=== PATIENT | female | born 1950 | race Caucasian/White ===

== ENCOUNTER 2019-06-30 12:08 | Emergency (ER) | payer MEDICARE, BC ==
[2019-06-30] MEDS ORDERED: Ondansetron 4 MG/2 ML SDV IVPUSH ONE (12:26)
[2019-06-30] MEDS ORDERED: methylPREDNISolone Sodium Succinate 40 MG/1 ML SDV IVPUSH ONE (12:26)
[2019-06-30] MEDS ORDERED: Albuterol/Ipratropium 3.0-0.5 MG/3 ML Neb Soln NEB ONE (12:27)
[2019-06-30] MEDS ORDERED: Albuterol 0.083% 2.5 MG/3 ML Neb Soln NEB PRN (12:28)
--- NOTE | 2019-06-30 12:29 | EDM.PDOC ---
ED HPI GENERAL MEDICAL PROBLEM - General Chief Complaint: Respiratory Problem Stated Complaint: ASTHMA ATTACK Time Seen by Provider: 06/30/19 12:29 Source of Information: Reports: Patient History Limitations: Reports: No Limitations - History of Present Illness INITIAL COMMENTS - FREE TEXT/NARRATIVE: Patient is a 69-year-old female who presents today with concern for a severe asthma exacerbation which started last night. She has an extensive history of reactive lung disease and is on montelukast, Singulair, and Advair inhaler twice daily. She is also on 4 times per day dual nebs and states that they have not been making any difference. She has been taking her medications as prescribed. She has a history of outside allergies, and says that a common trigger for her is when there is a shift in weather and probably pollen in the fall and cause her to exacerbate very rapidly. She is coughing so bad that she is having some posttussive emesis. She has had previous allergy testing and only knows the results that she was "sensitive". She denies any fever, chills or sweats. She reports that she has been having some diarrhea, but thinks it's from a new heart pill. She does not smoke, and she does not have diabetes. She does not note any pain in her chest, she is is finding it very difficult to breathe. Throat Pain Score (Numeric/FACES): 2 - Related Data Allergies Allergy/AdvReac Type Severity Reaction Status Date / Time chocolate flavor Allergy Cannot Verified 09/27/16 20:40 Remember latex Allergy Cannot Verified 09/27/16 20:40 Remember Penicillins Allergy Hives Verified 06/30/19 12:13 Home Meds: Home Meds Citalopram Hydrobromide [Citalopram HBr] 20 mg PO DAILY 04/08/14 [History] Fluticasone/Salmeterol [Advair 500-50] 1 puff INH BID 04/08/14 [History] Montelukast [Singulair] 10 mg PO BEDTIME 04/08/14 [History] Ondansetron [Zofran] 4 mg PO Q8H PRN 04/08/14 [History] Verapamil HCl [Verapamil ER] 240 mg PO DAILY 04/08/14 [History] Albuterol Sulfate [Proair Hfa] 2 puff IH Q4H PRN 90 Days hfa.aer.ad 04/14/14 [ Rx] Carisoprodol [Soma] 350 mg PO QID PRN #360 tablet 04/14/14 [Rx] Pramipexole [Mirapex] 0.5 mg PO 1700 #90 tab 04/14/14 [Rx] Topiramate [Topamax] 100 mg PO TID #0 04/14/14 [Rx] Acetaminophen [Acetaminophen Extra Strength] 500 mg PO ASDIRECTED PRN 09/27/16 [ History] Acetaminophen/HYDROcodone [[place] 325-5 MG] 1 - 2 tab PO TID PRN 09/27/16 [ History] Albuterol/Ipratropium [DuoNeb 3.0-0.5 MG/3 ML] 3 ml NEB QID 09/27/16 [History] Ca/D3/Mag#11/Zinc/Senior Datastage Developer/Vick/Bor [Caltrate 600+D Plus Tablet] 1 tab PO DAILY 09/27 [History] EPINEPHrine [Epinephrine] 1 dose IM ASDIRECTED PRN 09/27/16 [History] diphenhydrAMINE [Benadryl] 25 mg PO QID PRN 09/27/16 [History] Gabapentin [Neurontin] 100 mg PO TID 06/30/19 [History] Propafenone HCl 75 mg PO TID 06/30/19 [History] Rizatriptan Benzoate [Rizatriptan] 10 mg PO ASDIRECTED 06/30/19 [History] predniSONE [Prednisone] 40 mg PO DAILY 5 Days #10 tablet 06/30/19 [Rx] rOPINIRole [Requip] 0.5 mg PO BEDTIME 06/30/19 [History] Past Medical History Cardiovascular History: Reports: Heart Failure, High Cholesterol, Hypertension Other Cardiovascular History: Significant PVC [place] Respiratory History: Reports: Asthma, Sleep Apnea Musculoskeletal History: Reports: Back Pain, Chronic Other Musculoskeletal History: Spine stimulator in place Social & Family History - Family History Cardiac: Reports: Hypertension Endocrine/Metabolic: Reports: Diabetes, type II - Living Situation & Occupation Living situation: Reports: ED ROS GENERAL - Review of Systems Review Of Systems: ROS reveals no pertinent complaints other than HPI. ED EXAM, GENERAL - Physical Exam Exam: See Below Free Text/Narrative:: Gen.: Alert, extremely anxious affect and rapid breathing with a significant cough noted at times. Tympanic membranes are clear bilaterally with normal light reflex and throat is without erythema, mucous members are moist and there is no tonsillar enlargement or exudates. Neck is supple and there is no cervical lymphadenopathy, no nasal congestion is noted at the nares. Heart is slightly tachycardic as would be expected from multiple nebs. Abdomen positive bowel sounds, soft nondistended nontender. Peripheral pulses are +2 in the upper and lower extremities and there is no lower extremity edema. Lungs have diffuse inspiratory and expiratory wheezes throughout with no overlying crackles heard. Her respiratory rate is elevated, but her oxygen sats are 99% on room air. She is able to speak to me in full sentences although will occasionally break into a coughing fit which can last several seconds and has some dry heaves at the end. Course - Vital Signs Text/Narrative:: Patient given DuoNeb on arrival with minimal change in her lung symptoms. Meds not available for immediate review. Labs ordered, chest x-ray Last Recorded V/S: Last Vital Signs Temp 36.4 C 06/30/19 14:27 Pulse 90 06/30/19 14:27 Resp 20 06/30/19 14:27 BP 142/69 H 06/30/19 14:27 Pulse Ox 96 06/30/19 14:27 - Orders/Labs/Meds Labs: Laboratory Tests 06/30/19 06/30/19 06/30/19 Range/Units 12:44 12:44 12:44 WBC 11.4 (4.5-12.0) X10-3/uL RBC 4.72 (3.23-5.20) x10(6)uL Hgb 14.5 (11.5-15.5) g/dL Hct 42.6 (30.0-51.3) % MCV 90.3 (80-96) fL MCH 30.7 (27.7-33.6) pg MCHC 33.9 (32.2-35.4) g/dL RDW 12.9 (11.5-15.5) % Plt Count 248 (125-369) X10(3)uL MPV 9.9 (7.4-10.4) fL Neut % (Auto) 53.4 (46-82) % Lymph % (Auto) 38.7 H (13-37) % [place] % (Auto) 6.1 (4-12) % Eos % (Auto) 1 (1.0-5.0) % Baso % (Auto) 1 (0-2) % Neut # (Auto) 6.1 (1.6-8.3) # Lymph # (Auto) 4.4 (0.6-5.0) # [place] # (Auto) 0.7 (0.0-1.3) # Eos # (Auto) 0.1 (0.0-0.8) # Baso # (Auto) 0.1 (0.0-0.2) # Sodium 143 (135-145) mmol/L Potassium 3.7 (3.5-5.3) mmol/L Chloride 109 (100-110) mmol/L Carbon Dioxide 22 (21-32) mmol/L BUN 15 (7-18) mg/dL Creatinine 0.9 (0.55-1.02) mg/dL Est Cr Clr Drug Dosing 48.11 mL/min Estimated GFR (MDRD) > 60 (>60) BUN/Creatinine Ratio 16.7 (9-20) Glucose 109 (80-116) mg/dL Calcium 8.8 (8.6-10.2) mg/dL C-Reactive Protein 0.9 (0.5-0.9) mg/dL Meds: Medications Discontinued Medications Generic Name Dose Route Start Last Admin Trade Name Freq PRN Reason Stop Dose Admin Albuterol 2.5 mg 06/30/19 12:28 06/30/19 14:22 Proventil Neb Soln NEB 2.5 mg Q2H PRN Administration Wheezing Albuterol/Ipratropium 3 ml 06/30/19 12:27 06/30/19 12:45 Duoneb 3.0-0.5 Mg/3 Ml NEB 06/30/19 12:28 3 ml ONETIME ONE Administration Methylprednisolone Sodium Succinate 60 mg 06/30/19 12:26 06/30/19 12:45 Solu-Medrol IVPUSH 06/30/19 12:27 60 mg ONETIME ONE Administration Ondansetron HCl 4 mg 06/30/19 12:26 06/30/19 12:43 Zofran IVPUSH 06/30/19 12:27 4 mg ONETIME ONE Administration Sodium Chloride 10 ml 06/30/19 12:44 06/30/19 12:30 Saline Flush FLUSH 10 ml ASDIRECTED PRN Administration Keep Vein Open - Re-Assessments/Exams Free Text/Narrative Re-Assessment/Exam: Labs returned within normal limits and patient does not have signs of infection. Dry heaving and vomiting is much better after Zofran but she is still having some coughing fits. She was given 60 of IV prednisone shortly after arrival, as she had already done multiple nebs at home just prior to arrival. She states that usually in this case would happen that she ends up with severely worsening on the second day and is admitted to the hospital no matter what. Her lung exam is actually significantly improved following DuoNeb here, with decreased wheezing, still no crackles and good air movement for effort Medications reviewed and the patient is on optimal asthma ther I accessed the [place] chart and did not see any recent pulmonary function tests, and she appears to have a significant cardiovascular history as well. I wonder about a component of heart failure but she does not appear to have any significant volume overload today and her chest x-ray is otherwise clear. I discussed her findings at length as she is on room air and her labs are normal I do not think she meets criteria for admission. I recommended a course of prednisone which she was quite reluctant about. I recommended follow-up with PCP in the next day or 2 given that she is significantly worried about worsening. She may also benefit from repeat PFTs at this time, I suspect she is significantly anxious about her breathing which is contributing. Departure - Departure Time of Disposition: 00:00 Disposition: Home, Self-Care 01 Condition: Fair Clinical Impression: Exacerbation of asthma - Discharge Information *PRESCRIPTION DRUG MONITORING PROGRAM REVIEWED*: Not Applicable *COPY OF PRESCRIPTION DRUG MONITORING REPORT IN PATIENT LES: Not Applicable Prescriptions: predniSONE [Prednisone] 40 mg PO DAILY 5 Days #10 tablet Instructions: Asthma, Adult Referrals: Huber Chawla MD [Primary Care Provider] - Forms: ED Department Discharge Additional Instructions: consider keeping track of weight - same time every day with same/equivalent clothing off or on start prednisone pack continue nebulizers and home meds could try adding allergy medication such as Zyrtec, Faith or Claritin during fall season followup with Dr. Chawla- July 03 at 1100, [employer]. can use honey or Over the counter cough syrup if symptoms worsen, return to ER
[2019-06-30] MEDS ORDERED: Sodium Chloride 0.9% 10 ML Syringe FLUSH PRN (12:44)
[2019-06-30 14:28] VITALS: BP 142/69; PULSE 90
--- NOTE | 2019-06-30 14:53 | CR ---
INDICATION: Short of breath, asthma. CHEST: PA and lateral views of the chest, 06/30/19, were compared with and 04/08/14, again revealing a neurostimulator extending from the lumbar area into the mid thoracic area. The heart appeared normal in size and shape. The aorta is tortuous to a moderate degree with minimal calcification suggested in the arch. Somewhat flattened diaphragm leaves appear to be progressively flattened, compatible with progressive COPD and/or exacerbation of COPD. Other airway disease cannot be excluded. Pulmonary markings appear similar to the previous study, allowing for change in inspiration, without a definite active infiltrate or effusion identified. What appears to be healed rib fracture on the left is noted laterally. A dextroconvex rotoscoliosis is noted at the thoracolumbar spine. IMPRESSION: 1. Exacerbation of and/or progression of COPD. 2. ASD aorta. 3. Scoliosis. 4. Neurostimulator again noted in place. MTDD
== END 2019-06-30 14:40 | disposition home or self-care (01) ==
LOC: FB.ED 12:08
DX: J45.901 Unspecified asthma with (acute) exacerbation (principal); I10 Essential (primary) hypertension; E78.00 Pure hypercholesterolemia, unspecified; Z91.040 Latex allergy status; Z79.899 Other long term (current) drug therapy; Z88.0 Allergy status to penicillin; Z88.8 Allergy status to other drugs, medicaments and biological substances
CPT/HCPCS: 36415; 71046; 80048; 85025; 86140; 93005; 94640; 96374; 96375; 99285; J2405; J2920; J7620-GY

== ENCOUNTER 2019-07-03 11:16 | Inpatient (IN) | payer MEDICARE, BC ==
[2019-07-03] MEDS ORDERED: Albuterol 8 GM Inhaler INH PRN (12:05)
[2019-07-03] MEDS ORDERED: methylPREDNISolone Sodium Succinate 125 MG/2 ML SDV IVPUSH ONE (13:00)
--- NOTE | 2019-07-03 13:56 | CR ---
INDICATION: Dyspnea. CHEST: PA and lateral views of the chest with two PA views were obtained, 07/03, and compared with 06/30/19 and 04/13/14. Neurostimulator wires are again noted, extending into the lower thoracic spine area. The heart is normal in size and shape with the aorta somewhat tortuous and calcified in the arch area. Bony structures appear to be grossly intact in the thoracic area with suggestion of a dextroconvex scoliosis of the upper lumbar area. Somewhat prominent AP diameter, minimal flattening of diaphragm leaves, and hyperaeration all suggest COPD, as previously. Pulmonary markings appear similar to the previous examination without a definite active infiltrate or effusion and with probable mild pulmonary fibrosis present. Multiple healed rib fractures are noted on the left laterally. IMPRESSION: 1. No acute process. 2. COPD. 3. ASD aorta. 4. Lumbar scoliosis. 5. Mild pulmonary fibrosis. MTDD
[2019-07-03] MEDS: Sodium Chloride 0.9% 10 ML Syringe FLUSH PRN ×2 (14:02→20:43)
[2019-07-03] MEDS: Gabapentin 100 MG Cap PO SCH ×2 (14:03→20:33)
[2019-07-03] MEDS: Topiramate 50 MG Tab PO SCH ×2 (14:03→20:31)
[2019-07-03] MEDS: PROPAFENONE 150 MG PO SCH ×2 (14:48→20:30)
--- NOTE | 2019-07-03 16:46 | PCM.HP.2 ---
H&P History of Present Illness - General Date of Service: 07/03/19 Admit Problem/Dx: Admission Diagnosis/Problem Admission Diagnosis/Problem Asthma with status asthmaticus Source of Information: Patient History Limitations: Reports: No Limitations - History of Present Illness Initial Comments - Free Text/Narative: SARINA this is a 69-year-old female was asthma. She's been treated as an outpatient and failed for an acute exacerbation started on Saturday. She complains of cough wheezing but denies any fever chills also throat. Chest no chest pain. She also has a history of chronic back pain and anxiety are stable.Never smoked Onset of Symptoms: Reports: Today headache Pain Score (Numeric/FACES): 6 - Related Data Allergies/Adverse Reactions: Allergies Allergy/AdvReac Type Severity Reaction Status Date / Time chocolate flavor Allergy Cannot Verified 09/27/16 20:40 Remember latex Allergy Cannot Verified 09/27/16 20:40 Remember Penicillins Allergy Hives Verified 06/30/19 12:13 Home Medications: Home Meds Citalopram Hydrobromide [Citalopram HBr] 20 mg PO BEDTIME 04/08/14 [History] Fluticasone/Salmeterol [Advair 500-50] 1 puff INH BID 04/08/14 [History] Montelukast [Singulair] 10 mg PO BEDTIME 04/08/14 [History] Albuterol Sulfate [Proair Hfa] 2 puff IH Q4H PRN 90 Days hfa.aer.ad 04/14/14 [ Rx] Topiramate [Topamax] 100 mg PO TID #0 04/14/14 [Rx] Albuterol/Ipratropium [DuoNeb 3.0-0.5 MG/3 ML] 3 ml NEB QID 09/27/16 [History] EPINEPHrine [Epinephrine] 0.3 mg IM ASDIRECTED PRN 09/27/16 [History] Gabapentin [Neurontin] 100 mg PO TID 06/30/19 [History] Propafenone HCl 75 mg PO TID 06/30/19 [History] Rizatriptan Benzoate [Rizatriptan] 10 mg PO ASDIRECTED 06/30/19 [History] predniSONE [Prednisone] 40 mg PO DAILY 5 Days #10 tablet 06/30/19 [Rx] Acetaminophen [Tylenol Arthritis Pain] 1,300 mg PO BEDTIME 07/03/19 [History] Acetaminophen [Tylenol Arthritis] 1,300 mg PO BID PRN 07/03/19 [History] Acetaminophen/Diphenhydramine [Tylenol Pm Ex-Strength Caplet] 2 tab PO BEDTIME PRN 07/03/19 [History] Albuterol/Ipratropium [DuoNeb 3.0-0.5 MG/3 ML] 3 ml IH BID PRN 07/03/19 [History ] Dextromethorphan/guaiFENesin [Robitussin DM] 10 ml PO Q6H PRN 07/03/19 [History] Naproxen Sodium 220 - 440 mg PO BID PRN 07/03/19 [History] Pramipexole [Mirapex] 1 mg PO DAILY@1700 07/03/19 [History] diphenhydrAMINE HCl [Allergy] 50 mg PO BEDTIME PRN 07/03/19 [History] Past Medical History HEENT History: Reports: Cataract, Impaired Vision Cardiovascular History: Reports: Heart Failure, High Cholesterol, Hypertension Other Cardiovascular History: Significant PVC [place] Respiratory History: Reports: Asthma, Sleep Apnea Gastrointestinal History: Reports: Hiatal Hernia, Irritable Bowel Syndrome [employer]INE[employer] History: Reports: Other OB/BYN History: Musculoskeletal History: Reports: Back Pain, Chronic Other Musculoskeletal History: Spine stimulator in place Neurological History: Reports: Migraines, Neuropathy, Peripheral Other Neuro History: L foot numbness Psychiatric History: Reports: Anxiety Endocrine/Metabolic History: Reports: Obesity/BMI 30+ - Infectious Disease History Infectious Disease History: Reports: Chicken Pox, Shingles - Past Surgical History HEENT Surgical History: Reports: Adenoidectomy, Cataract Surgery, Tonsillectomy Other HEENT Surgeries/Procedures: bilat cataract GI Surgical History: Reports: Bariatric Procedure, Cholecystectomy, Colonoscopy , EGD Female Surgical History: Reports: Hysterectomy Social & Family History - Family History Family Medical History: Noncontributory Cardiac: Reports: Hypertension Endocrine/Metabolic: Reports: Diabetes, type II - Tobacco Use Second Hand Smoke Exposure: Yes - Caffeine Use Caffeine Use: Reports: None - Recreational Drug Use Recreational Drug Use: No - Living Situation & Occupation Living situation: Reports: H&P Review of Systems - Review of Systems: Review Of Systems: ROS reveals no pertinent complaints other than HPI. Exam - Exam Exam: See Below - Vital Signs Vital Signs: Last Vital Signs Temp 97.7 F 07/03/19 14:00 Pulse 101 H 07/03/19 14:00 Resp 14 07/03/19 14:00 BP 107/56 L 07/03/19 14:00 Pulse Ox 96 07/03/19 14:00 Weight: 81.647 kg - Exam General: Alert, Oriented, Mild Distress HEENT: PERRLA, Hearing Intact, Mucosa Moist & [place], Nares Patent, Normal Nasal Septum, Posterior Pharynx Clear, Conjunctiva Clear, EOMI, EACs Clear, TMs Clear Neck: Supple, Trachea Midline, 2 Lungs: Decreased Breath Sounds, Rhonchi, Wheezing Cardiovascular: Regular Rate, Regular Rhythm GI/Abdominal Exam: Normal Bowel Sounds, Soft, Non-Tender, No Organomegaly, No Distention, No Abnormal Bruit, No Mass, Pelvis Stable (Female) Exam: Deferred Rectal (Female) Exam: Deferred Back Exam: Normal Inspection, Full Range of Motion, NT Extremities: Normal Inspection, Normal Range of Motion, Non-Tender, No Pedal Edema, Normal Capillary Refill Skin: Warm, Dry, Intact Neurological: Cranial Nerves Intact, Reflexes Equal Bilateral Neuro Extensive - Mental Status: Alert, Oriented x3, Normal Mood/Affect, Normal Cognition Neuro Extensive - Motor, Sensory, Reflexes: CN II-XII Intact, Normal Gait, Normal Reflexes Psychiatric: Alert, Normal Affect, Normal Mood - Patient Data Lab Results Last 24 hrs: Laboratory Results - last 24 hr 07/03/19 07/03/19 Range/Units 15:29 15:29 WBC 14.1 H (4.5-12.0) X10-3/uL RBC 4.85 (3.23-5.20) x10(6)uL Hgb 14.7 (11.5-15.5) g/dL Hct 44.4 (30.0-51.3) % MCV 91.6 (80-96) fL MCH 30.4 (27.7-33.6) pg MCHC 33.2 (32.2-35.4) g/dL RDW 13.2 (11.5-15.5) % Plt Count 297 (125-369) X10(3)uL MPV 10.0 (7.4-10.4) fL Neut % (Auto) 81.1 (46-82) % Lymph % (Auto) 15.9 (13-37) % [place] % (Auto) 2.5 L (4-12) % Eos % (Auto) 0 L (1.0-5.0) % Baso % (Auto) 0 (0-2) % Neut # (Auto) 11.5 H (1.6-8.3) # Lymph # (Auto) 2.2 (0.6-5.0) # [place] # (Auto) 0.4 (0.0-1.3) # Eos # (Auto) 0.0 (0.0-0.8) # Baso # (Auto) 0.0 (0.0-0.2) # ESR 5 (0-20) mm/hr Sodium 143 (135-145) mmol/L Potassium 4.0 (3.5-5.3) mmol/L Chloride 106 (100-110) mmol/L Carbon Dioxide 24 (21-32) mmol/L BUN 15 (7-18) mg/dL Creatinine 1.0 (0.55-1.02) mg/dL Est Cr Clr Drug Dosing 44.25 mL/min Estimated GFR (MDRD) 55 L (>60) BUN/Creatinine Ratio 15.0 (9-20) Glucose 165 H (80-116) mg/dL Calcium 9.1 (8.6-10.2) mg/dL Total Bilirubin 0.3 (0.1-1.3) mg/dL AST 25 (5-25) IU/L ALT 30 (12-36) U/L Alkaline Phosphatase 69 (56-112) IU/L Total Protein 7.3 (6.0-8.0) g/dL Albumin 3.8 (3.2-4.6) g/dL Globulin 3.5 g/dL Albumin/Globulin Ratio 1.1 Result Diagrams: 07/04/19 06:28 07/04/19 06:28 EKG INTERPRETATION EKG Date: 07/04/19 Rhythm: NSR - Problem List (1) Exacerbation of asthma SNOMED Code(s): 949238561 ICD Code: J45.901 - UNSPECIFIED ASTHMA WITH (ACUTE) EXACERBATION Status: Acute Current Visit: No Qualifiers: Asthma severity: mild (2) HTN (hypertension) SNOMED Code(s): 51635280 ICD Code: I10 - ESSENTIAL (PRIMARY) HYPERTENSION Status: Acute Current Visit: Yes Qualifiers: Hypertension type: essential hypertension Qualified Code(s): I10 - Essential (primary) hypertension (3) Anxiety state SNOMED Code(s): 758751280 ICD Code: F41.1 - GENERALIZED ANXIETY DISORDER Status: Chronic Priority: High Current Visit: No Onset Date: 04/08/14 Problem Details: Continue home medication and add intermittent ativan IV as needed. Warned her that the duonebs contribute to the tremulousness and palpitations as well. (4) Chronic pain syndrome SNOMED Code(s): 045448399 ICD Code: G89.4 - CHRONIC PAIN SYNDROME Status: Chronic Priority: Medium Current Visit: No Problem Details: Continue home meds and monitor. Has stimulator in place. Problem List Initiated/Reviewed/Updated: Yes Orders Last 24hrs: Active Orders 24 hr Category Date Time Status Patient Status [ADT] Routine ADT 07/03/19 11:19 Active EKG Documentation Completion [RC] ASDIRECTED Care 07/03/19 11:27 Active Height and Weight [RC] DAILY Care 07/03/19 11:19 Active Oxygen Therapy [RC] PRN Care 07/03/19 11:19 Active Pulse Oximetry [RC] PRN Care 07/03/19 11:21 Active RT Aerosol Therapy [RC] ASDIRECTED Care 07/03/19 11:27 Active RT Post Treatment Assessment [RC] Click to Edit Care 07/03/19 12:06 Active VTE/DVT Education [RC] Per Unit Routine Care 07/03/19 11:19 Active Vital Signs [RC] Q4H Care 07/03/19 11:19 Active Regular Diet [DIET] Diet 07/03/19 Dinner Ordered BASIC METABOLIC PANEL,BMP [CHEM] AM Lab 07/04/19 05:11 Ordered CBC WITH AUTO DIFF [HEME] AM Lab 07/04/19 05:11 Ordered D Dimer [D-DIMER QUANTITATIVE] [COAG] AM Lab 07/04/19 05:11 Ordered Acetaminophen [Tylenol Extra Strength] Med 07/03/19 12:08 Active 1,000 mg PO Q8H PRN Albuterol [Ventolin HFA] Med 07/03/19 12:05 Active 0 gm INH Q4H PRN Albuterol/Ipratropium [DuoNeb 3.0-0.5 MG/3 ML] Med 07/03/19 11:19 Active 3 ml INH Q4H PRN Budesonide [Pulmicort] Med 07/03/19 21:00 Active 0.5 mg NEB BIDRT Citalopram [Celexa] Med 07/03/19 21:00 Active 20 mg PO BEDTIME Enoxaparin [Lovenox] Med 07/03/19 16:00 Active 40 mg SUBCUT Q24H Gabapentin [Neurontin] Med 07/03/19 14:00 Active 100 mg PO TID Montelukast [Singulair] Med 07/03/19 21:00 Active 10 mg PO BEDTIME Naproxen [Naprosyn] Med 07/03/19 12:04 Active 250 mg PO Q12H PRN Non-Formulary Medication [NF Drug] Med 07/03/19 14:00 Active 0 each PO TID Pramipexole [Mirapex] Med 07/03/19 17:00 Active 0.5 - 1 mg PO DAILY@1700 Sodium Chloride 0.9% [Saline Flush] Med 07/03/19 11:19 Active 10 ml FLUSH ASDIRECTED PRN Topiramate [Topamax] Med 07/03/19 14:00 Active 100 mg PO TID methylPREDNISolone Sod Succ [Solu-MEDROL] Med 07/03/19 20:00 Active 80 mg IVPUSH Q8H Antiembolic Hose [OM.PC] Per Unit Routine Oth 07/03/19 11:22 Ordered Saline Lock Insert [OM.PC] Routine Oth 07/03/19 11:19 Ordered Resuscitation Status Routine Resus Stat 07/03/19 11:19 Ordered EKG 12 Lead [EK] Routine Ther 07/03/19 11:19 Ordered Medication Orders Acetaminophen (Tylenol Extra Strength) 1,000 mg PO Q8H PRN PRN Reason: Pain Albuterol (Ventolin Hfa) 0 gm INH Q4H PRN PRN Reason: Wheezing Albuterol/Ipratropium (Duoneb 3.0-0.5 Mg/3 Ml) 3 ml INH Q4H PRN PRN Reason: Shortness Of Breath/wheezing Budesonide (Pulmicort) 0.5 mg NEB BIDRT [place] Citalopram Hydrobromide (Celexa) 20 mg PO BEDTIME [facility] Enoxaparin Sodium (Lovenox) 40 mg SUBCUT Q24H [facility] Gabapentin (Neurontin) 100 mg PO TID [facility] Last Admin: 07/03/19 14:03 Dose: 100 mg Methylprednisolone Sodium Succinate (Solu-Medrol) 80 mg IVPUSH Q8H [facility] Montelukast Sodium (Singulair) 10 mg PO BEDTIME [facility] Naproxen (Naprosyn) 250 mg PO Q12H PRN PRN Reason: Pain Propafenone 150mg (Tab *Ptom) 0 each PO TID [facility] Last Admin: 07/03/19 14:48 Dose: 1 each Pramipexole Dihydrochloride (Mirapex) 0.5 - 1 mg PO DAILY@1700 [facility] Sodium Chloride (Saline Flush) 10 ml FLUSH ASDIRECTED PRN PRN Reason: Keep Vein Open Last Admin: 07/03/19 14:02 Dose: 10 ml Topiramate (Topamax) 100 mg PO TID [facility] Last Admin: 07/03/19 14:03 Dose: 100 mg Assessment/Plan Comment:: IV solumedrol. O2 PRN - Mortality Measure Prognosis:: Good
[2019-07-03] MEDS: Enoxaparin 40 MG/0.4 ML Syringe SUBCUT SCH (17:00)
[2019-07-03] MEDS: Albuterol/Ipratropium 3.0-0.5 MG/3 ML Neb Soln INH PRN (18:23)
[2019-07-03] MEDS: methylPREDNISolone Sodium Succinate 125 MG/2 ML SDV IVPUSH SCH (20:28)
[2019-07-03] MEDS: Citalopram 20 MG Tab PO SCH (20:29)
[2019-07-03] MEDS: Budesonide 0.5 MG/2 ML Neb Susp NEB SCH (20:30)
[2019-07-03] MEDS: Montelukast 10 MG Tab PO SCH (20:31)
[2019-07-03] MEDS ORDERED: guaiFENesin/Dextromethorphan 100-10 MG/5 ML Soln 5 ML Cup PO PRN ×2 (21:19→21:22)
[2019-07-03] MEDS: Acetaminophen 500 MG Tab PO PRN (21:38)
[2019-07-04] MEDS: Albuterol/Ipratropium 3.0-0.5 MG/3 ML Neb Soln INH PRN ×3 (03:58→09:21)
[2019-07-04] MEDS: methylPREDNISolone Sodium Succinate 125 MG/2 ML SDV IVPUSH SCH ×3 (04:01→20:13)
[2019-07-04] MEDS: Sodium Chloride 0.9% 10 ML Syringe FLUSH PRN ×3 (04:06→20:19)
[2019-07-04] MEDS: Budesonide 0.5 MG/2 ML Neb Susp NEB SCH ×2 (06:20→20:14)
[2019-07-04] MEDS: Gabapentin 100 MG Cap PO SCH ×3 (09:27→20:13)
[2019-07-04] MEDS: PROPAFENONE 150 MG PO SCH ×3 (09:30→20:14)
[2019-07-04] MEDS: Topiramate 50 MG Tab PO SCH ×3 (09:31→20:14)
[2019-07-04] MEDS: Acetaminophen 500 MG Tab PO PRN ×2 (09:39→20:13)
--- NOTE | 2019-07-04 10:07 | PCM.PN ---
- General Info Date of Service: 07/04/19 Subjective Update: Kiarra still shortness of breath or wheezing and persistent coughing. Denies chest pain. Has insomnia,chronic Functional Status: Reports: Pain Controlled - Review of Systems General: Reports: No Symptoms HEENT: Reports: No Symptoms Pulmonary: Reports: Shortness of Breath, Cough, Wheezing Cardiovascular: Reports: No Symptoms Gastrointestinal: Reports: No Symptoms - Patient Data Vitals - Most Recent: Last Vital Signs Temp 97.6 F 07/04/19 04:00 Pulse 86 07/04/19 04:00 Resp 20 07/04/19 04:00 BP 123/67 07/04/19 04:00 Pulse Ox 95 07/04/19 04:00 Weight - Most Recent: 81.647 kg Lab Results Last 24 Hours: Laboratory Results - last 24 hr 07/03/19 07/03/19 07/04/19 Range/Units 15:29 15:29 06:28 WBC 14.1 H 11.2 (4.5-12.0) X10-3/uL RBC 4.85 4.78 (3.23-5.20) x10(6)uL Hgb 14.7 14.1 (11.5-15.5) g/dL Hct 44.4 43.5 (30.0-51.3) % MCV 91.6 91.1 (80-96) fL MCH 30.4 29.6 (27.7-33.6) pg MCHC 33.2 32.5 (32.2-35.4) g/dL RDW 13.2 13.0 (11.5-15.5) % Plt Count 297 285 (125-369) X10(3)uL MPV 10.0 10.2 (7.4-10.4) fL Neut % (Auto) 81.1 75.9 (46-82) % Lymph % (Auto) 15.9 18.9 (13-37) % [place] % (Auto) 2.5 L 4.8 (4-12) % Eos % (Auto) 0 L 0 L (1.0-5.0) % Baso % (Auto) 0 0 (0-2) % Neut # (Auto) 11.5 H 8.6 H (1.6-8.3) # Lymph # (Auto) 2.2 2.1 (0.6-5.0) # [place] # (Auto) 0.4 0.5 (0.0-1.3) # Eos # (Auto) 0.0 0.0 (0.0-0.8) # Baso # (Auto) 0.0 0.0 (0.0-0.2) # ESR 5 (0-20) mm/hr D-Dimer, Quantitative (0.0-0.59) mg/LFEU Sodium 143 (135-145) mmol/L Potassium 4.0 (3.5-5.3) mmol/L Chloride 106 (100-110) mmol/L Carbon Dioxide 24 (21-32) mmol/L BUN 15 (7-18) mg/dL Creatinine 1.0 (0.55-1.02) mg/dL Est Cr Clr Drug Dosing 44.25 mL/min Estimated GFR (MDRD) 55 L (>60) BUN/Creatinine Ratio 15.0 (9-20) Glucose 165 H (80-116) mg/dL Calcium 9.1 (8.6-10.2) mg/dL Total Bilirubin 0.3 (0.1-1.3) mg/dL AST 25 (5-25) IU/L ALT 30 (12-36) U/L Alkaline Phosphatase 69 (56-112) IU/L Total Protein 7.3 (6.0-8.0) g/dL Albumin 3.8 (3.2-4.6) g/dL Globulin 3.5 g/dL Albumin/Globulin Ratio 1.1 07/04/19 07/04/19 Range/Units 06:28 06:28 WBC (4.5-12.0) X10-3/uL RBC (3.23-5.20) x10(6)uL Hgb (11.5-15.5) g/dL Hct (30.0-51.3) % MCV (80-96) fL MCH (27.7-33.6) pg MCHC (32.2-35.4) g/dL RDW (11.5-15.5) % Plt Count (125-369) X10(3)uL MPV (7.4-10.4) fL Neut % (Auto) (46-82) % Lymph % (Auto) (13-37) % [place] % (Auto) (4-12) % Eos % (Auto) (1.0-5.0) % Baso % (Auto) (0-2) % Neut # (Auto) (1.6-8.3) # Lymph # (Auto) (0.6-5.0) # [place] # (Auto) (0.0-1.3) # Eos # (Auto) (0.0-0.8) # Baso # (Auto) (0.0-0.2) # ESR (0-20) mm/hr D-Dimer, Quantitative < 0.19 (0.0-0.59) mg/LFEU Sodium 143 (135-145) mmol/L Potassium 3.5 (3.5-5.3) mmol/L Chloride 106 (100-110) mmol/L Carbon Dioxide 25 (21-32) mmol/L BUN 13 (7-18) mg/dL Creatinine 0.9 (0.55-1.02) mg/dL Est Cr Clr Drug Dosing 49.17 mL/min Estimated GFR (MDRD) > 60 (>60) BUN/Creatinine Ratio 14.4 (9-20) Glucose 144 H (80-116) mg/dL Calcium 9.2 (8.6-10.2) mg/dL Total Bilirubin (0.1-1.3) mg/dL AST (5-25) IU/L ALT (12-36) U/L Alkaline Phosphatase (56-112) IU/L Total Protein (6.0-8.0) g/dL Albumin (3.2-4.6) g/dL Globulin g/dL Albumin/Globulin Ratio Med Orders - Current: Current Medications Acetaminophen (Tylenol Extra Strength) 1,000 mg PO Q8H PRN PRN Reason: Pain Last Admin: 07/04/19 09:39 Dose: 1,000 mg Albuterol/Ipratropium (Duoneb 3.0-0.5 Mg/3 Ml) 3 ml NEB Q6H [facility] Budesonide (Pulmicort) 0.5 mg NEB BIDRT [facility] Last Admin: 07/04/19 06:20 Dose: 0.5 mg Citalopram Hydrobromide (Celexa) 20 mg PO BEDTIME [facility] Last Admin: 07/03/19 20:29 Dose: 20 mg Enoxaparin Sodium (Lovenox) 40 mg SUBCUT Q24H [facility] Last Admin: 07/03/19 17:00 Dose: 40 mg Gabapentin (Neurontin) 100 mg PO TID [facility] Last Admin: 07/04/19 09:27 Dose: 100 mg Guaifenesin/Codeine Phosphate (Robitussin Ac) 10 ml PO Q6H [facility] Guaifenesin/Phenylephrine HCl (Robitussin Dm) 5 ml PO Q4H PRN PRN Reason: Cough Last Admin: 07/03/19 21:37 Dose: 5 ml Guaifenesin/Phenylephrine HCl (Robitussin Dm) 10 ml PO Q4H PRN PRN Reason: Cough Last Admin: 07/04/19 09:40 Dose: 10 ml Levalbuterol HCl (Xopenex) 1.25 mg NEB Q4HRRT PRN PRN Reason: Wheezing Montelukast Sodium (Singulair) 10 mg PO BEDTIME [facility] Last Admin: 07/03/19 20:31 Dose: 10 mg Naproxen (Naprosyn) 250 mg PO Q12H PRN PRN Reason: Pain Propafenone 150mg (Tab *Ptom) 0 each PO TID [facility] Last Admin: 07/04/19 09:30 Dose: 1 each Pramipexole Dihydrochloride (Mirapex) 0.5 - 1 mg PO DAILY@1700 [facility] Last Admin: 07/03/19 17:00 Dose: 1 mg Sodium Chloride (Saline Flush) 10 ml FLUSH ASDIRECTED PRN PRN Reason: Keep Vein Open Last Admin: 07/04/19 04:06 Dose: 10 ml Topiramate (Topamax) 100 mg PO TID [facility] Last Admin: 07/04/19 09:31 Dose: 100 mg Discontinued Medications Albuterol (Ventolin Hfa) 0 gm INH Q4H PRN PRN Reason: Wheezing Albuterol/Ipratropium (Duoneb 3.0-0.5 Mg/3 Ml) 3 ml INH Q4H PRN PRN Reason: Shortness Of Breath/wheezing Last Admin: 07/04/19 09:21 Dose: 3 ml Methylprednisolone Sodium Succinate (Solu-Medrol) 125 mg IVPUSH ONETIME ONE Stop: 07/03/19 13:01 Last Admin: 07/03/19 13:49 Dose: 125 mg Methylprednisolone Sodium Succinate (Solu-Medrol) 80 mg IVPUSH Q8H [facility] Last Admin: 07/04/19 04:01 Dose: 80 mg - Exam General: Alert, Oriented, Mild Distress HEENT: Pupils Equal Neck: Supple Lungs: Decreased Breath Sounds, Crackles, Rhonchi Extremities: Normal Inspection - Problem List & Annotations (1) Exacerbation of asthma SNOMED Code(s): 685233289 Code(s): J45.901 - UNSPECIFIED ASTHMA WITH (ACUTE) EXACERBATION Status: Acute Current Visit: No Qualifiers: Asthma severity: mild (2) HTN (hypertension) SNOMED Code(s): 32136897 Code(s): I10 - ESSENTIAL (PRIMARY) HYPERTENSION Status: Acute Current Visit: Yes Qualifiers: Hypertension type: essential hypertension Qualified Code(s): I10 - Essential (primary) hypertension (3) Anxiety state SNOMED Code(s): 996427069 Code(s): F41.1 - GENERALIZED ANXIETY DISORDER Status: Chronic Priority: High Current Visit: No Onset Date: 04/08/14 Annotation/Comment:: Continue home medication and add intermittent ativan IV as needed. Warned her that the duonebs contribute to the tremulousness and palpitations as well. (4) Chronic pain syndrome SNOMED Code(s): 642210579 Code(s): G89.4 - CHRONIC PAIN SYNDROME Status: Chronic Priority: Medium Current Visit: No Annotation/Comment:: Continue home meds and monitor. Has stimulator in place. - Problem List Review Problem List Initiated/Reviewed/Updated: Yes - My Orders Last 24 Hours: My Active Orders 07/03/19 21:19 Dextromethorphan/guaiFENesin [Robitussin DM] 5 ml PO Q4H PRN 07/03/19 21:22 Dextromethorphan/guaiFENesin [Robitussin DM] 10 ml PO Q4H PRN 07/04/19 10:03 RT Aerosol Therapy [RC] ASDIRECTED Chest w Cont [CT] Routine Levalbuterol HCl [Xopenex] 1.25 mg NEB Q4HRRT PRN 07/04/19 10:04 RT Aerosol Therapy [RC] ASDIRECTED 07/04/19 10:15 Albuterol/Ipratropium [DuoNeb 3.0-0.5 MG/3 ML] 3 ml NEB Q6H Codeine/guaiFENesin [Robitussin AC] 10 ml PO Q6H methylPREDNISolone Sod Succ [Solu-MEDROL] 125 mg IVPUSH Q8H - Plan Plan:: The albuterol makes her jumpy and anxious. I was sutured to Xopenex. I will also increase of the metatarsal 125 mg every 8 hours. Of ordered for Robitussin with codeine to help the cough. Obtain a CT of the chest for further investigation of shortness of breath and cough that is not improving
[2019-07-04] MEDS ORDERED: Iopamidol 755 Mg/ML 75 ML Bottle IV ONE (12:20)
[2019-07-04] MEDS: Codeine/guaiFENesin 100-10 MG/5 ML Syrup 5 ML Cup PO SCH ×3 (12:38→21:30)
[2019-07-04] MEDS: Albuterol/Ipratropium 3.0-0.5 MG/3 ML Neb Soln NEB SCH ×3 (12:38→21:53)
[2019-07-04] MEDS: Levalbuterol HCl 1.25 MG/3 ML Neb NEB PRN ×2 (13:44→21:30)
[2019-07-04] MEDS: Naproxen 250 MG Tab PO PRN (15:17)
[2019-07-04] MEDS: Enoxaparin 40 MG/0.4 ML Syringe SUBCUT SCH (16:51)
[2019-07-04] MEDS: Montelukast 10 MG Tab PO SCH (20:13)
[2019-07-04] MEDS: Citalopram 20 MG Tab PO SCH (20:15)
[2019-07-05] MEDS: Levalbuterol HCl 1.25 MG/3 ML Neb NEB PRN ×2 (01:38→08:47)
[2019-07-05] MEDS: Naproxen 250 MG Tab PO PRN (02:00)
[2019-07-05] MEDS: Albuterol/Ipratropium 3.0-0.5 MG/3 ML Neb Soln NEB SCH ×2 (04:43→10:26)
[2019-07-05] MEDS: Codeine/guaiFENesin 100-10 MG/5 ML Syrup 5 ML Cup PO SCH ×2 (04:43→10:31)
[2019-07-05] MEDS: methylPREDNISolone Sodium Succinate 125 MG/2 ML SDV IVPUSH SCH ×2 (04:44→11:17)
[2019-07-05] MEDS: Acetaminophen 500 MG Tab PO PRN (04:45)
[2019-07-05] MEDS: Sodium Chloride 0.9% 10 ML Syringe FLUSH PRN ×2 (04:49→11:17)
[2019-07-05] MEDS: Budesonide 0.5 MG/2 ML Neb Susp NEB SCH (08:09)
--- NOTE | 2019-07-05 08:16 | PCM.PN ---
- General Info Date of Service: 07/05/19 Subjective Update: Kiarra still shortness of breath or wheezing and persistent coughing. Denies chest pain. Has insomnia,chronic Functional Status: Reports: Pain Controlled - Review of Systems General: Reports: No Symptoms HEENT: Reports: No Symptoms Pulmonary: Reports: Pleuritic Chest Pain, Cough Cardiovascular: Reports: No Symptoms Gastrointestinal: Reports: No Symptoms - Patient Data Vitals - Most Recent: Last Vital Signs Temp 98.7 F 07/05/19 05:00 Pulse 72 07/05/19 05:00 Resp 16 07/05/19 05:00 BP 128/65 07/05/19 05:00 Pulse Ox 95 07/05/19 05:00 Weight - Most Recent: 81.647 kg Med Orders - Current: Current Medications Acetaminophen (Tylenol Extra Strength) 1,000 mg PO Q8H PRN PRN Reason: Pain Last Admin: 07/05/19 04:45 Dose: 1,000 mg Albuterol/Ipratropium (Duoneb 3.0-0.5 Mg/3 Ml) 3 ml NEB Q6H [facility] Last Admin: 07/05/19 04:43 Dose: Not Given Budesonide (Pulmicort) 0.5 mg NEB BIDRT [facility] Last Admin: 07/05/19 08:09 Dose: 0.5 mg Citalopram Hydrobromide (Celexa) 20 mg PO BEDTIME [facility] Last Admin: 07/04/19 20:15 Dose: 20 mg Enoxaparin Sodium (Lovenox) 40 mg SUBCUT Q24H [facility] Last Admin: 07/04/19 16:51 Dose: 40 mg Gabapentin (Neurontin) 100 mg PO TID [facility] Last Admin: 07/04/19 20:13 Dose: 100 mg Guaifenesin/Codeine Phosphate (Robitussin Ac) 10 ml PO Q6H [facility] Last Admin: 07/05/19 04:43 Dose: 10 ml Guaifenesin/Phenylephrine HCl (Robitussin Dm) 5 ml PO Q4H PRN PRN Reason: Cough Last Admin: 07/03/19 21:37 Dose: 5 ml Guaifenesin/Phenylephrine HCl (Robitussin Dm) 10 ml PO Q4H PRN PRN Reason: Cough Last Admin: 07/04/19 09:40 Dose: 10 ml Levalbuterol HCl (Xopenex) 1.25 mg NEB Q4H PRN PRN Reason: Wheezing Last Admin: 07/05/19 01:38 Dose: 1.25 mg Methylprednisolone Sodium Succinate (Solu-Medrol) 125 mg IVPUSH Q8H [facility] Last Admin: 07/05/19 04:44 Dose: 125 mg Montelukast Sodium (Singulair) 10 mg PO BEDTIME [facility] Last Admin: 07/04/19 20:13 Dose: 10 mg Naproxen (Naprosyn) 250 mg PO Q12H PRN PRN Reason: Pain Last Admin: 07/05/19 02:00 Dose: 250 mg Propafenone 150mg (Tab *Ptom) 0 each PO TID [facility] Last Admin: 07/04/19 20:14 Dose: 1 each Pramipexole Dihydrochloride (Mirapex) 0.5 - 1 mg PO DAILY@1700 [facility] Last Admin: 07/04/19 16:52 Dose: 0.5 mg Sodium Chloride (Saline Flush) 10 ml FLUSH ASDIRECTED PRN PRN Reason: Keep Vein Open Last Admin: 07/05/19 04:49 Dose: 10 ml Topiramate (Topamax) 100 mg PO TID [facility] Last Admin: 07/04/19 20:14 Dose: 100 mg Discontinued Medications Albuterol (Ventolin Hfa) 0 gm INH Q4H PRN PRN Reason: Wheezing Albuterol/Ipratropium (Duoneb 3.0-0.5 Mg/3 Ml) 3 ml INH Q4H PRN PRN Reason: Shortness Of Breath/wheezing Last Admin: 07/04/19 09:21 Dose: 3 ml Iopamidol (Isovue-370 (76%)) 68 ml IV ONETIME ONE Stop: 07/04/19 12:21 Last Admin: 07/04/19 13:21 Dose: 68 ml Methylprednisolone Sodium Succinate (Solu-Medrol) 125 mg IVPUSH ONETIME ONE Stop: 07/03/19 13:01 Last Admin: 07/03/19 13:49 Dose: 125 mg Methylprednisolone Sodium Succinate (Solu-Medrol) 80 mg IVPUSH Q8H [facility] Last Admin: 07/04/19 04:01 Dose: 80 mg - Exam General: Alert, Oriented HEENT: Pupils Equal Neck: Supple Lungs: Rhonchi Cardiovascular: Regular Rate - Problem List & Annotations (1) Exacerbation of asthma SNOMED Code(s): 779921859 Code(s): J45.901 - UNSPECIFIED ASTHMA WITH (ACUTE) EXACERBATION Status: Acute Current Visit: No Qualifiers: Asthma severity: mild (2) HTN (hypertension) SNOMED Code(s): 88785725 Code(s): I10 - ESSENTIAL (PRIMARY) HYPERTENSION Status: Acute Current Visit: Yes Qualifiers: Hypertension type: essential hypertension Qualified Code(s): I10 - Essential (primary) hypertension (3) Anxiety state SNOMED Code(s): 691529634 Code(s): F41.1 - GENERALIZED ANXIETY DISORDER Status: Chronic Priority: High Current Visit: No Onset Date: 04/08/14 Annotation/Comment:: Continue home medication and add intermittent ativan IV as needed. Warned her that the duonebs contribute to the tremulousness and palpitations as well. (4) Chronic pain syndrome SNOMED Code(s): 356321584 Code(s): G89.4 - CHRONIC PAIN SYNDROME Status: Chronic Priority: Medium Current Visit: No Annotation/Comment:: Continue home meds and monitor. Has stimulator in place. - Problem List Review Problem List Initiated/Reviewed/Updated: Yes - My Orders Last 24 Hours: My Active Orders 07/04/19 10:00 Albuterol/Ipratropium [DuoNeb 3.0-0.5 MG/3 ML] 3 ml NEB Q6H Codeine/guaiFENesin [Robitussin AC] 10 ml PO Q6H 07/04/19 10:03 RT Aerosol Therapy [RC] ASDIRECTED Chest w Cont [CT] Routine Levalbuterol HCl [Xopenex] 1.25 mg NEB Q4H PRN 07/04/19 12:00 methylPREDNISolone Sod Succ [Solu-MEDROL] 125 mg IVPUSH Q8H - Plan Plan:: CT of the chest showed emphysematous changes. She feels better on Xopenex, I will send her home today
[2019-07-05] MEDS: Gabapentin 100 MG Cap PO SCH (08:19)
[2019-07-05] MEDS: PROPAFENONE 150 MG PO SCH (08:20)
[2019-07-05] MEDS: Topiramate 50 MG Tab PO SCH (08:20)
[2019-07-05 14:35] VITALS: BP 126/67; PULSE 91
--- NOTE | 2019-07-06 07:33 | DISCH ---
DISCHARGE DATE: 07/05/2019 REASON FOR ADMISSION: Asthma exacerbation. DISCHARGE DIAGNOSIS: Asthma exacerbation. BRIEF HISTORY: Kiarra is a 69-year-old female who has asthma, who was admitted because of failed outpatient therapy. She had wheezing, cough, and shortness of breath. Did not need oxygen. She was treated with methylprednisolone IV, Robitussin with codeine and improved significantly. She had a change from albuterol to Xopenex, which seemed to help much better. She was discharged on Xopenex, Tessalon Perles, and prednisone 10 mg b.i.d. for 5 days with discharge followup recommended with Dr. Chawla on Saturday. A CT done during the hospital stay showed emphysematous changes but no pneumonia. D-dimer was also negative. I spent more than 35 minutes in the discharge of the patient. /[id number] REESE/LINDA
== END 2019-07-05 11:45 | disposition home or self-care (01) | DRG 203 ==
LOC: FB.MS 12:42
PROVIDERS: ADMIT Family Medicine; ATTEND Family Medicine
DX: J45.901 Unspecified asthma with (acute) exacerbation (principal); M54.9 Dorsalgia, unspecified; H54.7 Unspecified visual loss; I50.9 Heart failure, unspecified; E78.00 Pure hypercholesterolemia, unspecified; I11.0 Hypertensive heart disease with heart failure; J45.909 Unspecified asthma, uncomplicated; F41.1 Generalized anxiety disorder; G89.4 Chronic pain syndrome; G62.9 Polyneuropathy, unspecified; E66.9 Obesity, unspecified; G43.909 Migraine, unspecified, not intractable, without status migrainosus; Z98.42 Cataract extraction status, left eye; Z98.41 Cataract extraction status, right eye; Z90.49 Acquired absence of other specified parts of digestive tract; Z88.0 Allergy status to penicillin; Z88.8 Allergy status to other drugs, medicaments and biological substances; Z91.040 Latex allergy status; Z79.899 Other long term (current) drug therapy; Z90.89 Acquired absence of other organs
CPT/HCPCS: 36415; 71046; 71260; 80048; 80053; 85025; 85379; 85651; 93005; 94640; A9270-GY; J1650; J2930; J7612-GY; J7620-GY; Q9967

== ENCOUNTER 2021-10-21 12:47 | Emergency (ER) | payer MEDICARE, BC ==
[2021-10-21] MEDS ORDERED: Codeine/guaiFENesin 100mg-10 MG/5 ML Soln 118 ML Bottle PO ONE (12:48)
[2021-10-21] MEDS ORDERED: predniSONE 20 MG Tab PO ONE (13:06)
[2021-10-21] MEDS ORDERED: Albuterol/Ipratropium 3.0-0.5 MG/3 ML Neb Soln NEB ONE ×2 (13:06→14:33)
--- NOTE | 2021-10-21 13:11 | EDM.PDOC ---
ED HPI GENERAL MEDICAL PROBLEM - General Stated Complaint: sob Time Seen by Provider: 10/21/21 13:00 Source of Information: Reports: Patient - History of Present Illness INITIAL COMMENTS - FREE TEXT/NARRATIVE: 71-year-old lady with a past medical history significant for moderate to severe persistent asthma came to the clinic and was sent to the emergency department due to what is likely a exacerbation of her asthma. She states that she uses her Singulair, Dulera, albuterol and leave albuterol inhalers as prescribed. 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 She states that the last time she had to come to the hospital for treatment with steroids was probably about 2 years ago. She states that she has two or so exacerbations every year but she usually is able to handle them at home. Denies fever, chills, chest pain. She states that she has been having this mild exacerbation since about the first of the year, approximately 1-1/2 weeks ago. She does have one sick contact. Her had some flulike symptoms around [facility], approximately 2 to 2-1/2 weeks ago. - Related Data Allergies Allergy/AdvReac Type Severity Reaction Status Date / Time chocolate flavor Allergy Cannot Verified 10/21/21 15:03 Remember latex Allergy Cannot Verified 10/21/21 15:03 Remember Penicillins Allergy Hives Verified 10/21/21 15:03 Home Meds: Home Meds Citalopram Hydrobromide [Citalopram HBr] 20 mg PO BEDTIME 04/08/14 [History] Fluticasone/Salmeterol [Advair 500-50] 1 puff INH BID 04/08/14 [History] Montelukast [Singulair] 10 mg PO BEDTIME 04/08/14 [History] Topiramate [Topamax] 100 mg PO TID #0 04/14/14 [Rx] Albuterol/Ipratropium [DuoNeb 3.0-0.5 MG/3 ML] 3 ml NEB QID 09/27/16 [History] EPINEPHrine [Epinephrine] 0.3 mg IM ASDIRECTED PRN 09/27/16 [History] Gabapentin [Neurontin] 100 mg PO TID 06/30/19 [History] Propafenone HCl 75 mg PO TID 06/30/19 [History] Rizatriptan Benzoate [Rizatriptan] 10 mg PO ASDIRECTED 06/30/19 [History] predniSONE [Prednisone] 40 mg PO DAILY 5 Days #10 tablet 06/30/19 [Rx] Acetaminophen [Tylenol Arthritis Pain] 1,300 mg PO BEDTIME 07/03/19 [History] Acetaminophen [Tylenol Arthritis] 1,300 mg PO BID PRN 07/03/19 [History] Acetaminophen/Diphenhydramine [Tylenol Pm Ex-Strength Caplet] 2 tab PO BEDTIME PRN 07/03/19 [History] Albuterol/Ipratropium [DuoNeb 3.0-0.5 MG/3 ML] 3 ml IH BID PRN 07/03/19 [History] Naproxen Sodium 220 - 440 mg PO BID PRN 07/03/19 [History] Pramipexole [Mirapex] 1 mg PO DAILY@1700 07/03/19 [History] diphenhydrAMINE HCl [Allergy] 50 mg PO BEDTIME PRN 07/03/19 [History] Benzonatate [Tessalon Perle] 200 mg PO TID PRN #30 capsule 07/05/19 [Rx] Codeine/guaiFENesin [Robitussin AC] 10 ml PO Q6H #240 ml 07/05/19 [Rx] levalbuterol HCL [Xopenex] 1.25 mg NEB Q4H PRN #60 neb 07/05/19 [Rx] predniSONE [Prednisone] 20 mg PO BID #10 tablet 07/05/19 [Rx] predniSONE [Prednisone] 60 mg PO DAILY #8 tablet 10/21/21 [Rx] Past Medical History HEENT History: Reports: Cataract, Impaired Vision Cardiovascular History: Reports: Heart Failure, High Cholesterol, Hypertension Other Cardiovascular History: Significant PVC [place] Respiratory History: Reports: Asthma, Sleep Apnea Gastrointestinal History: Reports: Hiatal Hernia, Irritable Bowel Syndrome 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: Other 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 OPERATOR History: Musculoskeletal History: Reports: Back Pain, Chronic Other Musculoskeletal History: Spine stimulator in place Neurological History: Reports: Migraines, Neuropathy, Peripheral Other Neuro History: L foot numbness Psychiatric History: Reports: Anxiety Endocrine/Metabolic History: Reports: Obesity/BMI 30+ - Infectious Disease History Infectious Disease History: Reports: Chicken Pox, Shingles - Past Surgical History HEENT Surgical History: Reports: Adenoidectomy, Cataract Surgery, Tonsillectomy Other HEENT Surgeries/Procedures: bilat cataract GI Surgical History: Reports: Bariatric Procedure, Cholecystectomy, Colonoscopy, EGD Female Surgical History: Reports: Hysterectomy Social & Family History - Family History Family Medical History: No Pertinent Family History Cardiac: Reports: Hypertension Endocrine/Metabolic: Reports: Diabetes, type II - Caffeine Use Caffeine Use: Reports: None - Living Situation & Occupation Living situation: Reports: ED ROS GENERAL - Review of Systems Review Of Systems: See Below Constitutional: Reports: No Symptoms HEENT: Reports: No Symptoms Respiratory: Reports: Shortness of Breath, Wheezing, Cough Cardiovascular: Reports: No Symptoms Endocrine: Reports: No Symptoms GI/Abdominal: Reports: No Symptoms : Reports: No Symptoms Musculoskeletal: Reports: No Symptoms Skin: Reports: No Symptoms Neurological: Reports: No Symptoms Psychiatric: Reports: No Symptoms Hematologic/Lymphatic: Reports: No Symptoms Immunologic: Reports: No Symptoms ED EXAM, GENERAL - Physical Exam Exam: See Below Exam Limited By: No Limitations General Appearance: Alert, Anxious Eye Exam: Bilateral Eye: EOMI Head: Atraumatic, Normocephalic Neck: Normal Inspection Respiratory/Chest: Decreased Breath Sounds, Wheezing Cardiovascular: Normal Peripheral Pulses, Tachycardia Peripheral Pulses: 2+: Radial (L), Radial (R), Dorsalis Pedis (L), Dorsalis Pedis (R) GI/Abdominal: Normal Bowel Sounds, Non-Tender Back Exam: Normal Inspection Extremities: Normal Inspection Neurological: Alert, Oriented, CN II-XII Intact, Normal Cognition, Normal Gait Psychiatric: Anxious Skin Exam: Warm, Dry Course - Vital Signs Text/Narrative:: Patient presented with symptoms consistent with asthma exacerbation and consistent with her prior asthma exacerbations. Patient was tested and found positive for COVID-19. Patient will be treated for asthma exacerbation and COVID-19 infection. She was given DuoNeb treatment in the emergency room and 60 mg of oral prednisone with some improvement. Chest x-ray shows no obvious acute pathology. Chest x-ray shows heart size is normal, spinal stimulator in place, no pneumothorax. There is some mild hyperinflation consistent with longstanding obstructive lung disease. Last Recorded V/S: Last Vital Signs Temp Pulse 88 10/21/21 14:39 Resp BP Pulse Ox 99 10/21/21 14:39 - Orders/Labs/Meds Orders: Active Orders 24 hr Category Date Time Status RT Aerosol Therapy [RC] ASDIRECTED Care 10/21/21 13:06 Active RT Aerosol Therapy [RC] ASDIRECTED Care 10/21/21 14:34 Active CXR [Chest 2V] [CR] Stat Exams 10/21/21 14:27 Ordered Labs: Laboratory Tests 10/21/21 Range/Units 13:50 Influenza Type A RNA Negative (NEGATIVE) Influenza Type B RNA Negative (NEGATIVE) SARS-CoV-2 RNA (NOBLE) Positive H (NEGATIVE) Meds: Medications Discontinued Medications Generic Name Dose Route Start Last Admin Trade Name Freq PRN Reason Stop Dose Admin Albuterol/Ipratropium 3 ml 10/21/21 13:06 10/21/21 13:19 Albuterol/Ipratropium 3.0-0.5 Mg/3 Ml [facility] [place] 10/21/21 13:07 3 ml ONETIME ONE Administration Albuterol/Ipratropium 3 ml 10/21/21 14:33 10/21/21 14:38 Albuterol/Ipratropium 3.0-0.5 Mg/3 Ml [facility] [place] 10/21/21 14:34 3 ml ONETIME ONE Administration Prednisone 60 mg 10/21/21 13:06 10/21/21 13:19 Prednisone 20 Mg Tab PO 10/21/21 13:07 60 mg ONETIME ONE Administration Departure - Departure Time of Disposition: 15:29 Disposition: Home, Self-Care 01 Condition: Fair Clinical Impression: Lab test positive for detection of COVID-19 virus, Acute asthma exacerbation - Discharge Information *PRESCRIPTION DRUG MONITORING PROGRAM REVIEWED*: Not Applicable *COPY OF PRESCRIPTION DRUG MONITORING REPORT IN PATIENT LES: Not Applicable Prescriptions: predniSONE [Prednisone] 60 mg PO DAILY #8 tablet Instructions: COVID-19 Frequently Asked Questions, Asthma Attack Prevention, Adult Additional Instructions: Please take 60 mg of prednisone daily for the next 4 days, today was your 1st-5 days of treatment. Please call your primary care physician on Saturday and see if they can get you on the list for outpatient treatment for COVID-19. You will also need to follow-up with your primary care physician to ensure that you have the best possible control of your asthma going forward. If you develop severe symptoms including chest pain, shortness of breath, change in mental status please come to the emergency department immediately. Sepsis Event Note (ED) - Focused Exam Vital Signs: Vital Signs Pulse Pulse Ox 10/21/21 14:39 88 99 10/21/21 13:19 97 - My Orders Last 24 Hours: My Active Orders 10/21/21 13:06 RT Aerosol Therapy [RC] ASDIRECTED 10/21/21 14:27 CXR [Chest 2V] [CR] Stat 10/21/21 14:34 RT Aerosol Therapy [RC] ASDIRECTED - Assessment/Plan Last 24 Hours: My Active Orders 10/21/21 13:06 RT Aerosol Therapy [RC] ASDIRECTED 10/21/21 14:27 CXR [Chest 2V] [CR] Stat 10/21/21 14:34 RT Aerosol Therapy [RC] ASDIRECTED
[2021-10-21 14:36] LABS: CORONAVIRUS COVID-19 NAA POSITIVE (NEGATIVE)
[2021-10-21 15:03] VITALS: PULSE 88
[2021-10-21 15:29] VITALS: BP 181/88
--- NOTE | 2021-10-23 12:25 | CR ---
INDICATION: Cough, shortness of breath - COVID positive. CHEST, TWO VIEWS: PA and lateral views of the chest, 10/21/21, were compared with 07/03/19 and 06/30/19. The heart appeared normal in size and shape. The aorta is tortuous with calcification in the arch. Bony structures appear to be fairly intact, with a mild dextroconvex scoliosis at the upper lumbar spine. Neurostimulator leads are noted in the lower middle thoracic spine. Heavy markings are again noted and appear similar to the previous study, without a definite active infiltrate or effusion - no consolidating pneumonia or effusion was seen. IMPRESSION: 1. No acute process. 2. Lumbar scoliosis. 3. ASD aorta. 4. Mild pulmonary fibrosis, which makes it difficult to entirely exclude minimal patchy bronchopneumonia in those areas. MTDD
== END 2021-10-21 15:45 | disposition home or self-care (01) ==
LOC: FB.ED 12:47
DX: U07.1 COVID-19 (principal); J45.901 Unspecified asthma with (acute) exacerbation; I11.0 Hypertensive heart disease with heart failure; I50.9 Heart failure, unspecified; E78.00 Pure hypercholesterolemia, unspecified; E66.9 Obesity, unspecified; Z68.25 Body mass index [BMI] 25.0-25.9, adult; Z88.0 Allergy status to penicillin; Z91.018 Allergy to other foods; Z91.040 Latex allergy status
CPT/HCPCS: 0240U; 71046; 94640; 99285; A9270; J7512; J7620-GY